=== PATIENT | female | born 1960 | race African-American/Black ===

== ENCOUNTER 2016-06-25 17:17 | Emergency (ER) | payer OTHER ==
[~2016-06-25] VITALS: Ht 170.2 cm; Wt 81.7 kg
[~2016-06-25 17:17] MED LIST: ALEVE220 MG PO; BYSTOLIC 5 MG5 M1 PO; CYMBALTA60 MG PO; DIOVAN 80 MG TA80 M1 PO; FENTANYL PA50 MCG/HR TOP; FLEXERIL PO; HYDROCHLOROTHIA25 M2 PO; HYDROCODON-ACE1 EAC5 PO; HYDROCODON-ACE1 EAC8 PO; IBUPROFEN 400400 M2 PO; IBUPROFEN 600600 M1 PO; IBUPROFEN 800800 M1 PO; IBUPROFEN 800800 MG PO; LYRICA 50 MG50 MG PO; MEDROLDOSEPACK PO; MELOXICAM7.5 MG PO; MOBIC7.5 MG PO; MS CONTIN15 MG PO; NEURONTIN 300300 M1 PO; NEURONTIN 300M300 M2 PO; NEURONTIN600 MG PO; NORCO 10-325 T1 EACH PO; NORCO 5-325 TA1 EACH PO; NORCO 7.5-3251 EACH PO; NORFLEX100 MG PO; NORVASC 5 MG TAB5 MG PO; NORVASC10 MG PO; PANTOPRAZOLE SO40 M1 PO; PAXIL10 MG; PERCOCET 5-3251 EACH PO; PERCOCET 7.5-51 EACH PO; PREDNISONE50 MG PO; PRINZIDE 20-121 EACH PO; SOMA250 MG PO; STOOL SOFTENER240 MG PO; TRAZODONE HCL50 MG PO; VALIUM2 MG PO; VICODIN 5-5001 EACH PO; ZANAFLEX2 MG PO; ZANTAC 150MG T150 M1 PO; [UNRECOGNIZED DRUG - OTHER]; [UNRECOGNIZED DRUG - REMARK]
[2016-06-25 17:24] VITALS: BP 155/91
[2016-06-25] MEDS ORDERED: NAPROXEN375 MG PO (17:32)
[2016-06-25] MEDS ORDERED: BUSPIRONE HCL7.5 MG PO (17:32)
[2016-06-25] MEDS ORDERED: BISOPROLOL FUMA10 MG PO (17:32)
[2016-06-25] MEDS ORDERED: VALSARTAN-HCTZ1 EAC3 PO (17:33)
[2016-06-25] MEDS ORDERED: MEDROLDOSEPACK PO (17:44)
== END 2016-06-25 19:30 | disposition home or self-care (01) ==
LOC: ER 17:17
DX: M79.632 Pain in left forearm (principal); M79.631 Pain in right forearm; I10 Essential (primary) hypertension; F41.8 Other specified anxiety disorders; Z90.710 Acquired absence of both cervix and uterus; Z88.8 Allergy status to other drugs, medicaments and biological substances; Z91.011 Allergy to milk products; F10.99 Alcohol use, unspecified with unspecified alcohol-induced disorder

== ENCOUNTER 2018-05-26 19:42 | Emergency (ER) | payer OTHER ==
[~2018-05-26] VITALS: Ht 172.7 cm; Wt 86.2 kg
[~2018-05-26 19:42] MED LIST changes: +BISOPROLOL FUMA10 MG PO; +BUSPIRONE HCL7.5 MG PO; +NAPROXEN375 MG PO; +VALSARTAN-HCTZ1 EAC3 PO
[2018-05-26] MEDS ORDERED: ULTRAM 50MG TAB50 MG PO (21:33)
[2018-05-26] MEDS ORDERED: MOBIC7.5 MG PO (21:33)
[2018-05-26 21:49] VITALS: BP 161/92
== END 2018-05-26 21:56 | disposition home or self-care (01) ==
LOC: ER 19:42
DX: R20.2 Paresthesia of skin (principal); M79.604 Pain in right leg; M79.605 Pain in left leg; I10 Essential (primary) hypertension; F41.9 Anxiety disorder, unspecified; F32.9 Major depressive disorder, single episode, unspecified; F17.210 Nicotine dependence, cigarettes, uncomplicated; Z91.011 Allergy to milk products; Z88.8 Allergy status to other drugs, medicaments and biological substances